=== PATIENT | female | born 2000 | race Caucasian/White ===

== ENCOUNTER 2022-02-13 18:43 | Emergency (ER) | payer SELFPAY ==
[~2022-02-13 18:43] MED LIST: BACTROBAN OINT22 GM EXT; CLEOCIN HCL300 MG PO; IBUPROFEN600 MG PO; TRAMADOL HCL50 MG PO; ZOFRAN ODT 4 MG4 MG SL
[2022-02-13 19:24] LABS: HEMOGLOBIN 13.9 gm/dl (12.3-15.3); RED BLOOD COUNT 4.63 M/UL (4.00-5.10); WHITE BLOOD COUNT 11.6 K/UL (4.5-11.0)
[2022-02-13 19:59] LABS: BUN/CREATININE RATIO 12 (0-10)
== END 2022-02-13 23:09 | disposition left against medical advice (07) ==
LOC: ER1 18:43
PROVIDERS: Family Medicine
DX: R10.9 Unspecified abdominal pain (principal); M54.9 Dorsalgia, unspecified; Z20.822 Contact with and (suspected) exposure to COVID-19
CPT/HCPCS: 0240U; 80053; 81001; 84702; 85025; 99281